=== PATIENT | female | born 1940 | race Caucasian/White ===

== ENCOUNTER 2017-01-15 09:03 | Outpatient (CLI) | payer MEDICARE ==
[2017-01-15 09:55] LABS: #Basophils 0.1 thou/uL (0.0-0.2); #Eosinphils 0.1 thou/uL (0.0-0.7); #Lymphocytes 2.8 thou/uL (1.20-3.40); #Monocytes 0.5 thou/uL (0.11-0.59); %Basophils 1.2 % (0.0-1.0); %Eosinophils 1.1 % (0.0-10.0); %Lymphocytes 37.7 % (21.0-51.0); %Monocytes 6.6 % (0.0-10.0); %Neutrophils 53.5 % (42.0-75.0); Hemoglobin 11.7 g/dL (12.0-16.0); Mean Corpuscular HGB CONC 33.1 g/dL (32.0-36.0); Mean Corpuscular Hemoglobin 31.4 pg (27.0-31.0); Mean Corpuscular Volume 95.1 fl (81.0-99.0); Mean Platelet Volume 6.2 fL (7.4-10.4); Platelet Count 349 thou/uL (130-400); RBC Distribution Width 12.3 % (11.5-14.5); Red Blood Cell (RBC) Count 3.74 mill/uL (4.20-5.40); White Blood Cell (WBC) Count 7.4 thou/uL (4.8-10.8)
[2017-01-15 10:09] LABS: ALT (SGPT) 11 U/L (8-55); AST (SGOT) 21 U/L (5-34); Albumin 4.1 g/dL (3.4-4.8); Alkaline Phosphatase 136 U/L (40-150); Anion Gap 13 mmol/L (10-20); BUN (Urea Nitrogen) 33 mg/dL (9.8-20.1); Bilirubin, Total 0.7 mg/dL (0.2-1.2); Calc. Creatinine Clearance 0 mL/min (70-130); Calcium 10.1 mg/dL (7.8-10.44); Carbon Dioxide 24 mmol/L (23-31); Cardiac Risk 3.7 (Less than 4.5); Chloride 107 mmol/L (98-107); Cholesterol 188 mg/dl (< 200 Desired); Estimated GFR-MDRD 51; Globulin 3.4 g/dL (2.4-3.5); Glucose 96 mg/dL (83-110); HDL Cholesterol 51 mg/dL (>60 Neg Risk); LDL Cholesterol, Calculated 115 mg/dL; Potassium 3.9 mmol/L (3.5-5.1); Protein, Total 7.5 g/dL (6.0-8.3); Sodium 140 mmol/L (136-145); Triglycerides 108 mg/dL (Less than 150)
[2017-01-15 10:38] LABS: Bilirubin Negative (Negative); Blood, Urine Negative (Negative); Clarity Clear (Clear); Glucose, Urine (Dipstick) Negative (Negative); Leukocyte Negative (Negative); Nitrite Negative (Negative); Protein, Urine (Dipstick) Negative (Neg-Trace); Urobilinogen 0.2 mg/dL (0.2-1.0)
[2017-01-15 10:40] LABS: Bacteria/HPF Rare-Few HPF (None Seen); RBC/HPF 0-3 HPF (0-3); Squamous Epithelial 0-3 HPF (0-3); WBC/HPF 0-3 HPF (0-3)
[2017-01-15 11:01] LABS: Free T4 (Free Thyroxine) 0.8 ng/dL (0.70-1.48); Thyroid Stimulating Hormone 1.6408 uIU/mL (0.35-4.94); Vitamin D, 25 Hydroxy 40.9 ng/ml (> 30.0)
== END 2017-01-15 09:04 | disposition home or self-care (01) ==
LOC: MADLABBHPM 09:03
PROVIDERS: ATTEND Family Medicine
DX: F41.8 Other specified anxiety disorders (principal); I10 Essential (primary) hypertension; R53.83 Other fatigue; M19.90 Unspecified osteoarthritis, unspecified site
CPT/HCPCS: 36415; 80053; 80061; 81001; 82306; 84439; 84443; 85025